=== PATIENT | female | born 1950 ===

== ENCOUNTER 2020-12-23 05:39 | Inpatient (IN) | payer MEDICARE, OTHER ==
[~2020-12-23] VITALS: Ht 160 cm; Wt 84.1 kg
[2020-12-23 06:51] LABS: Basophils # (auto) 0.1 10 ^3/uL (0-0.2); Basophils % (auto) 0.6 % (0.0-2.0); Eosinophils # (auto) 0.2 10 ^3/uL (0-0.8); Eosinophils % (auto) 2.1 % (0.0-7.0); Monocytes # (auto) 0.8 10 ^3/uL (0-1.3); Neutrophils % (auto) 75.8 % (37.0-80.0)
[2020-12-23 06:54] LABS: Hematocrit 20.6 % (36.0-46.0); Lymphocytes # (auto) 1.4 10 ^3/uL (0.4-5.4); Lymphocytes % (auto) 13.5 % (10.0-50.0); Mean Corpuscular Hemoglobin 28.6 pg (28.0-32.0); Mean Corpuscular Volume 83.9 fL (80.0-100.0); Neutrophils # (auto) 7.9 10 ^3/uL (1.6-8.6); Red Blood Cells 2.45 10^6/uL (4.0-5.20); Red Cell Distribution Width 16.4 % (11.8-14.3); White Blood Cell 10.4 10^3/uL (4.4-10.8)
[2020-12-23 07:05] LABS: INR 1.12 (0.9-1.15); Partial Thromboplastin Time 27.3 sec (23.6-33.0)
[2020-12-23 07:07] LABS: Albumin 2.3 g/dL (3.4-5.0); Anion Gap 9 (5-15); BUN/Creatinine Ratio 8.2; Blood Urea Nitrogen 51 mg/dL (7-18); Calcium 7.8 mg/dL (8.5-10.1); Carbon Dioxide 24 mmol/L (21-32); Chloride 106 mmol/L (98-107); GFR African American 9 mL/min; GFR Non-African American 7 mL/min; Glucose 136 mg/dL (74-106); Sodium 139 mmol/L (136-145)
[2020-12-23 07:12] LABS: Alanine Aminotransferase 14 U/L (13-56); Alkaline Phosphatase 156 U/L (45-117); Aspartate Aminotransferase 15 U/L (15-37); Bilirubin, Total 0.3 mg/dL (0.2-1.0); Total Protein 7.6 g/dL (6.4-8.2)
[2020-12-23] MEDS ORDERED: NITROGLYCERIN 0.4 MG SL TAB SL PRN (14:30)
[2020-12-23] MEDS ORDERED: cefTRIAXone 1GM/50ML D5W 50 ML IV ONE (14:30)
[2020-12-23] MEDS ORDERED: DEXTROSE (50%) 50ML SYRG IV PRN (14:30)
[2020-12-23] MEDS ORDERED: traMADol HCL 50 MG TAB PO PRN (14:30)
[2020-12-23] MEDS ORDERED: ONDANSETRON HCL 4 MG/2 ML VIAL IV PRN (14:30)
[2020-12-23] MEDS ORDERED: MORPHINE SULFATE INJECTION 2 MG/ML SYRG IV PRN (14:30)
[2020-12-23] MEDS ORDERED: ACETAMINOPHEN 500 MG TAB PO PRN (14:30)
[2020-12-23] MEDS ORDERED: LACTULOSE 20Gm/30ML SOLN PO PRN (14:30)
[2020-12-23 16:31] LABS: Uric Acid 4.9 mg/dL (2.6-6.0)
[2020-12-23 16:44] LABS: % Iron Saturation 15.5 % (15-50)
[2020-12-23] MEDS: ACCU-CHEK COMFORT CURVE STRIP VI SCH ×2 (17:13→22:49)
[2020-12-23] MEDS: InsuLIN REG 1unit/0.01ml Soln (100units/ml) SC SCH ×2 (17:15→22:49)
[2020-12-23 18:09] LABS: Hematocrit 20.2 % (36.0-46.0)
[2020-12-23 18:32] LABS: Hemoglobin 6.6 g/dL (12.2-16.2)
[2020-12-23 19:17] VITALS: BP 155/61
[2020-12-23] MEDS: PANTOPRAZOLE 40 MG TAB PO SCH (22:48)
[2020-12-23] MEDS: ATORVASTATIN 20 MG TAB PO SCH (22:48)
[2020-12-24] VITALS (13 sets, daily range): BP systolic 122–149; BP diastolic 37–65
[2020-12-24 01:16] LABS: Hemoglobin 7.5 g/dL (12.2-16.2)
[2020-12-24] MEDS: ACCU-CHEK COMFORT CURVE STRIP VI SCH ×4 (06:27→22:49)
[2020-12-24] MEDS: InsuLIN REG 1unit/0.01ml Soln (100units/ml) SC SCH ×5 (06:27→22:52)
[2020-12-24] MEDS ORDERED: SODIUM CHL 0.9% 1000 ML BAG XX ONE (07:00)
[2020-12-24 07:34] LABS: Basophils # (auto) 0.1 10 ^3/uL (0-0.2); Basophils % (auto) 0.7 % (0.0-2.0); Monocytes # (auto) 0.9 10 ^3/uL (0-1.3)
[2020-12-24 07:36] LABS: Eosinophils # (auto) 0.4 10 ^3/uL (0-0.8); Eosinophils % (auto) 3.6 % (0.0-7.0); Hematocrit 24.6 % (36.0-46.0); Hemoglobin 8.3 g/dL (12.2-16.2); Lymphocytes # (auto) 1.2 10 ^3/uL (0.4-5.4); Lymphocytes % (auto) 11.3 % (10.0-50.0); Mean Corpuscular Hemoglobin 28.2 pg (28.0-32.0); Mean Corpuscular Hgb Conc. 33.9 g/dL (32.0-36.0); Mean Corpuscular Volume 83.1 fL (80.0-100.0); Monocytes % (auto) 8.4 % (0.0-12.0); Neutrophils # (auto) 7.8 10 ^3/uL (1.6-8.6); Red Blood Cells 2.96 10^6/uL (4.0-5.20); Red Cell Distribution Width 16.3 % (11.8-14.3); White Blood Cell 10.3 10^3/uL (4.4-10.8)
[2020-12-24 07:51] LABS: Albumin 2.2 g/dL (3.4-5.0); Anion Gap 8 (5-15); Blood Urea Nitrogen 65 mg/dL (7-18); Carbon Dioxide 25 mmol/L (21-32); Chloride 108 mmol/L (98-107); Glucose 85 mg/dL (74-106); Potassium 4.1 mmol/L (3.5-5.1); Sodium 141 mmol/L (136-145)
[2020-12-24 07:57] LABS: Alanine Aminotransferase 12 U/L (13-56); Alkaline Phosphatase 139 U/L (45-117); Aspartate Aminotransferase 13 U/L (15-37); BUN/Creatinine Ratio 8.8; Bilirubin, Total 0.6 mg/dL (0.2-1.0); Cholesterol 100 mg/dL (< 200); GFR African American 7 mL/min; GFR Non-African American 6 mL/min; HDL Cholesterol 33 mg/dL (40-59); LDL Cholesterol 49 mg/dL (< 100); Total Protein 7.4 g/dL (6.4-8.2); Triglycerides 136 mg/dL (< 150)
[2020-12-24] MEDS: PANTOPRAZOLE 40 MG TAB PO SCH ×2 (10:06→22:49)
[2020-12-24] MEDS: cefTRIAXone 1GM/50ML D5W 50 ML IV SCH (11:56)
[2020-12-24 14:01] LABS: Hematocrit 28.2 % (36.0-46.0); Hemoglobin 9.4 g/dL (12.2-16.2)
[2020-12-24] MEDS ORDERED: EPOETIN ALFA-EPBX 10,000 UNIT/1ML VIAL SC ONE (21:00)
[2020-12-24] MEDS: ATORVASTATIN 20 MG TAB PO SCH (22:49)
[2020-12-25 05:00] VITALS: BP 132/65
[2020-12-25 05:39] LABS: Basophils # (auto) 0.1 10 ^3/uL (0-0.2); Basophils % (auto) 0.8 % (0.0-2.0); Eosinophils # (auto) 0.4 10 ^3/uL (0-0.8); Eosinophils % (auto) 3.9 % (0.0-7.0); Hematocrit 25.8 % (36.0-46.0); Hemoglobin 8.8 g/dL (12.2-16.2); Lymphocytes # (auto) 1.6 10 ^3/uL (0.4-5.4); Lymphocytes % (auto) 15.5 % (10.0-50.0); Mean Corpuscular Hemoglobin 28.8 pg (28.0-32.0); Mean Corpuscular Hgb Conc. 34.3 g/dL (32.0-36.0); Monocytes % (auto) 9.5 % (0.0-12.0); Neutrophils # (auto) 7.3 10 ^3/uL (1.6-8.6); Neutrophils % (auto) 70.3 % (37.0-80.0); Red Blood Cells 3.07 10^6/uL (4.0-5.20); Red Cell Distribution Width 15.9 % (11.8-14.3); White Blood Cell 10.4 10^3/uL (4.4-10.8)
[2020-12-25 06:00] LABS: Potassium 3.8 mmol/L (3.5-5.1)
[2020-12-25 06:07] LABS: Calcium 7.9 mg/dL (8.5-10.1)
[2020-12-25] MEDS: InsuLIN REG 1unit/0.01ml Soln (100units/ml) SC SCH ×4 (07:00→21:19)
[2020-12-25] MEDS: ACCU-CHEK COMFORT CURVE STRIP VI SCH ×4 (07:05→21:17)
[2020-12-25 09:00] VITALS: BP 143/62
[2020-12-25] MEDS: cefTRIAXone 1GM/50ML D5W 50 ML IV SCH (10:40)
[2020-12-25] MEDS: PANTOPRAZOLE 40 MG TAB PO SCH ×2 (10:40→21:17)
[2020-12-25 12:44] VITALS: BP 156/61
[2020-12-25 17:00] VITALS: BP 145/64
[2020-12-25] MEDS: ATORVASTATIN 20 MG TAB PO SCH (21:16)
[2020-12-25 22:00] VITALS: BP 150/61
[2020-12-26 05:00] VITALS: BP 122/52
[2020-12-26] MEDS: ACCU-CHEK COMFORT CURVE STRIP VI SCH ×3 (06:04→18:20)
[2020-12-26] MEDS: InsuLIN REG 1unit/0.01ml Soln (100units/ml) SC SCH ×3 (06:04→18:24)
[2020-12-26 06:17] LABS: Basophils # (auto) 0.1 10 ^3/uL (0-0.2); Basophils % (auto) 0.9 % (0.0-2.0); Eosinophils # (auto) 0.3 10 ^3/uL (0-0.8); Eosinophils % (auto) 3.2 % (0.0-7.0); Hemoglobin 9.9 g/dL (12.2-16.2); Lymphocytes # (auto) 1.7 10 ^3/uL (0.4-5.4); Mean Corpuscular Hemoglobin 28.4 pg (28.0-32.0); Mean Corpuscular Hgb Conc. 34.1 g/dL (32.0-36.0); Mean Corpuscular Volume 83.4 fL (80.0-100.0); Monocytes # (auto) 1.1 10 ^3/uL (0-1.3); Monocytes % (auto) 12.5 % (0.0-12.0); Neutrophils # (auto) 5.9 10 ^3/uL (1.6-8.6); Neutrophils % (auto) 64.4 % (37.0-80.0); Red Blood Cells 3.48 10^6/uL (4.0-5.20); Red Cell Distribution Width 15.8 % (11.8-14.3); White Blood Cell 9.1 10^3/uL (4.4-10.8)
[2020-12-26 06:46] LABS: BUN/Creatinine Ratio 8.8; Calcium 7.9 mg/dL (8.5-10.1); Potassium 3.8 mmol/L (3.5-5.1)
[2020-12-26 09:00] VITALS: BP 157/65
[2020-12-26] MEDS: PANTOPRAZOLE 40 MG TAB PO SCH (10:16)
[2020-12-26] MEDS: cefTRIAXone 1GM/50ML D5W 50 ML IV SCH (10:16)
[2020-12-26 13:00] VITALS: BP 121/57
[2020-12-26 17:00] VITALS: BP 136/76
[2020-12-27] MEDS ORDERED: ASPirin 81 mg TAB PO SCH (10:00)
== END 2020-12-26 19:50 | DRG 291 ==
LOC: ER 05:39 → EDBD 05:39 → TELE 14:19 → TELE-WESTW 12-24 13:54
PROVIDERS: ADMIT Internal Medicine; ATTEND Internal Medicine Geriatric Medicine
PROC: 30233N1 Transfusion of Nonautologous Red Blood Cells into Peripheral Vein, Percutaneous Approach (ICD-10-PCS; principal; 2020-12-23)
PROC: 5A1D70Z Performance of Urinary Filtration, Intermittent, Less than 6 Hours Per Day (ICD-10-PCS; 2020-12-25)
DX: I13.2 Hypertensive heart and chronic kidney disease with heart failure and with stage 5 chronic kidney disease, or end stage renal disease (principal); N18.6 End stage renal disease; E43 Unspecified severe protein-calorie malnutrition; I50.32 Chronic diastolic (congestive) heart failure; R55 Syncope and collapse; E11.21 Type 2 diabetes mellitus with diabetic nephropathy; D63.1 Anemia in chronic kidney disease; I25.10 Atherosclerotic heart disease of native coronary artery without angina pectoris; Z20.822 Contact with and (suspected) exposure to COVID-19; E11.22 Type 2 diabetes mellitus with diabetic chronic kidney disease; Z83.3 Family history of diabetes mellitus; Z86.73 Personal history of transient ischemic attack (TIA), and cerebral infarction without residual deficits; Z95.5 Presence of coronary angioplasty implant and graft; Z99.2 Dependence on renal dialysis; Z98.51 Tubal ligation status
CPT/HCPCS: 36415; 70450; 71045; 80048; 80053; 80061; 82306; 82550; 82728; 82962; 83036; 83540; 83550; 83605; 83880; 83970; 84100; 84443; 84484; 84550; 85014; 85018; 85025; 85045; 85379; 85610; 85730; 86141; 86850; 86900; 86901; 86920; 87426; 90935; 93005; 93306; 96365; 99291; G0378; J0696; J1815